=== PATIENT | male | born 1980 ===

== ENCOUNTER 2018-10-12 06:51 | Observation (INO) ==
[2018-10-12] MEDS ORDERED: KETOROLAC 10 MG TABLET PO PRN (10:17)
[2018-10-12] MEDS ORDERED: IBUPROFEN 400 MG TABLET PO PRN (10:17)
[2018-10-12] MEDS ORDERED: BISACODYL 5 MG TABLET PO PRN (10:17)
[2018-10-12] MEDS ORDERED: ONDANSETRON 4 MG/2 ML VIAL IV PRN (10:17)
[2018-10-12] MEDS ORDERED: ALBUTEROL/IPRATROPIUM 3 ML NEB RESP TX PRN (10:17)
[2018-10-12] MEDS ORDERED: ACETAMINOPHEN 325 MG TABLET PO PRN (10:17)
[2018-10-12] MEDS ORDERED: LORazepam 2 MG/1 ML VIAL IV PRN (10:22)
[2018-10-12] MEDS: PANTOPRAZOLE 40 MG TABLET PO SCH (12:46)
[2018-10-12] MEDS: NICOTINE 21 MG/24 HR PATCH TRANSDERM SCH (12:51)
[2018-10-12] MEDS: BACLOFEN 10 MG TABLET PO SCH ×2 (14:53→20:15)
[2018-10-12] MEDS: HYDROmorphone 2 MG/1 ML VIAL IV PRN ×2 (14:54→20:16)
[2018-10-12] MEDS: ENOXAPARIN 40 MG/0.4 ML SYRINGE SUBCUT SCH (20:15)
[2018-10-13 04:56] LABS: Basophils # 0.1 10*3/uL (0.0-0.2); Basophils % 0.8 % (0.0-0.8); Eosinophils # 0.2 10*3/uL (0.0-0.87); Eosinophils % 2.5 % (0.00-10.9); Hemoglobin 13.1 GM/DL (14.0-18.0); Immature Granulocytes % 0.4 %; Immature Granulocytes Absolute 0.04 #; Lymphocytes # 1.9 10*3/uL (1.4-4.0); Lymphocytes % 19.2 % (21.2-54.2); Mean Corpuscular HGB Conc 30.5 GM/DL (32-36); Mean Corpuscular Hemoglobin 28 PG (27-34); Mean Corpuscular Volume 91.3 FL (87-102); Mean Platelet Volume 9.1 FL (9.6-12.0); Monocytes # 0.9 10*3/uL (0.11-0.8); Monocytes % 8.7 % (1.7-12.7); Neutrophils # 6.7 10*3/uL (1.4-7.4); Neutrophils % 68.4 % (38.7-73.9); Platelet Count 286 T/CUMM (130-400); Red Blood Count 4.71 MC/CUMM (3.8-5.5); Red Cell Distribution Width 13.2 % (9.3-17.3); White Blood Count 9.8 T/CUMM (4-12)
[2018-10-13 05:32] LABS: Albumin 2.8 G/DL (3.4-5.0); Bilirubin,Total 0.6 MG/DL (0.2-1.0); Calcium 8.3 MG/DL (8.5-10.1); Osmolality,Calculated 274.7 MOS/KG (273-304); Potassium 3.7 MMOL/L (3.5-5.1); Total Protein 7.2 G/DL (6.4-8.3)
[2018-10-13] MEDS: HYDROmorphone 2 MG/1 ML VIAL IV PRN ×4 (06:40→22:28)
[2018-10-13] MEDS: PANTOPRAZOLE 40 MG TABLET PO SCH (09:30)
[2018-10-13] MEDS: BACLOFEN 10 MG TABLET PO SCH ×3 (09:30→20:54)
[2018-10-13] MEDS: NICOTINE 21 MG/24 HR PATCH TRANSDERM SCH (09:30)
[2018-10-13] MEDS: ENOXAPARIN 40 MG/0.4 ML SYRINGE SUBCUT SCH (20:54)
[2018-10-14] MEDS: HYDROmorphone 2 MG/1 ML VIAL IV PRN ×5 (05:28→19:26)
[2018-10-14] MEDS: NICOTINE 21 MG/24 HR PATCH TRANSDERM SCH (09:14)
[2018-10-14] MEDS: BACLOFEN 10 MG TABLET PO SCH ×3 (09:14→20:11)
[2018-10-14] MEDS: PANTOPRAZOLE 40 MG TABLET PO SCH (09:14)
[2018-10-14] MEDS ORDERED: fentaNYL 25 MCG/HR PATCH TRANSDERM SCH (16:00)
[2018-10-14] MEDS: ENOXAPARIN 40 MG/0.4 ML SYRINGE SUBCUT SCH (20:11)
[2018-10-15] MEDS: HYDROmorphone 2 MG/1 ML VIAL IV PRN ×2 (04:33→11:30)
[2018-10-15] MEDS: BACLOFEN 10 MG TABLET PO SCH (09:17)
[2018-10-15] MEDS: NICOTINE 21 MG/24 HR PATCH TRANSDERM SCH (09:17)
[2018-10-15] MEDS: PANTOPRAZOLE 40 MG TABLET PO SCH (09:17)
[2018-10-15 11:51] VITALS: BP 111/70
[2018-10-17] MEDS ORDERED: METHOTREXATE 2.5 MG TABLET PO SCH (09:00)
== END 2018-10-15 12:45 ==
LOC: N.ED 06:51 → N.EDINP 06:51 → N.3E 11:27
PROVIDERS: ADMIT Surgery; ATTEND Surgery